=== PATIENT | male | born 1980 | race Caucasian/White ===

== ENCOUNTER 2016-10-18 18:55 | Emergency (ER) | payer OTHER ==
[~2016-10-18] VITALS: Ht 180.3 cm; Wt 100.0 kg
[~2016-10-18 18:55] MED LIST: PANT40TA2 PO; SERT25TA2 PO
[2016-10-18 18:57] VITALS: BP 167/105; PULSE 79; RESP 16; O2SAT 96
--- NOTE | 2016-10-18 19:00 | ED.REPORT ---
HPI-Extremity Problem Lower Date of Service Oct 18, 2016 ED Provider: Alex Guajardo MD Pt is a healthy 36 y/o male presenting to the ED c/o intermittent mild right knee and ankle swelling onset 1 week ago. He denies any overt trauma. A few days ago he was climbing high stairs and felt a shooting pain behind his knee while stepping upwards. 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 Pt denies fever, chills, rash. He has never had a surgery in the knee or history of DVT. Nursing Notes Stated Complaint: RIGHT LEG SWELLING/SENT FROM URGENT CARE Chief Complaint: Extremity Trauma Nursing Notes Reviewed: Yes Allergies: Coded Allergies: Penicillins (Verified Allergy, Unknown, Hives, 10/18/16) Scheduled Pantoprazole DR (Protonix) 40 Mg Tablet 40 MG PO DAILY Sertraline HCl (Zoloft) 25 Mg Tablet 25 MG PO DAILY General Time Seen by MD: 19:00 Chief Complaint Other (RLE swelling) Hx Obtained From: Patient Arrived By: Walk-in Onset Occurred: 1 week ago Symptom Duration: Since onset Location: : Ankle right: Knee right Quality: Painful Severity: Current: Mild Severity: Maximum: Mild Recent Healthcare: No recent doctor visit, No recent hospitalization Similar Sx Previous: No Past Medical History Past Medical History GERD Gastritis Past Surgical History Reports: Appendectomy Family History Grandfather of [place] Smoking History Smoker Current Status UNK Social History Alcohol Use: 1-3 per week Drug Use: Denies drug use Ambulatory Status Independent Review of Systems Constitutional: Denies: Chills, Fever Musculoskeletal: Reports: Extremity pain, Extremity swelling Skin: Denies Rash Neurologic: Denies: Numbness, Weakness Complete sys rev & neg: except as marked. Physical Exam Initial Vital Signs Vital Signs (First) Date Time Temp Pulse Resp B/P Pulse Ox O2 Delivery O2 Flow Rate FiO2 10/18/16 18:57 36.6 79 16 167/105 96 Room Air Initial VS: Reviewed, Vital signs abnormal Head / Eyes: Atraumatic, Normocephalic, PERRL ENT: Mucous membranes moist, Conjunctiva normal, No scleral icterus Neck: Supple, Full range of motion Respiratory: Breath sounds normal, Clear to auscultation, No respiratory distress Cardiovascular: Regular rate & rhythm, Heart sounds normal, Intact distal pulses Abdomen / GI: Soft, No distention Upper Extremities: Vascular intact, Neuro intact, No swelling Skin: Warm, Dry, No cyanosis Neurologic: Alert, Oriented, Nonfocal Psychiatric: Mood/affect normal, Behavior normal, Normal thought content Lower Extremity / Pelvis / MS: No deformity, Neurologic intact, Vascular intact Very mild swelling of the right medial ankle. Right knee: no redness, warmth, calf swelling or tenderness, effusion. Ankle / Foot: No deformity, Neurologic intact, Vascular intact General/Constitutional: Awake, Alert, No acute distress, Cooperative, Not toxic appearing Interpretation & Diagnostics US Focused Lower Ext Venous Negative for DVT Exam Performed by: Allied health pract Exam Interpreted by: Allied health pract Re-Eval/Medical Decision Med Decision/Clinical Course Pt is a healthy 36 y/o male presenting to the ED c/o intermittent mild right knee and ankle swelling onset 1 week ago. He denies any overt trauma. A few days ago he was climbing high stairs and felt a shooting pain behind his knee while stepping upwards. 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 Pt denies fever, chills, rash. He has never had a surgery in the knee or history of DVT. Here in the emergency department the patient is afebrile, hemodynamically stable in no apparent distress. He is neurovascularly intact in the affected extremity. No significant swelling is present. Ultrasound demonstrates no DVT. There is no evidence of abscess, cellulitis or septic arthritis. No evidence of fracture or trauma. I feel that the patient is appropriate for discharge. Prior to discharge follow-up and return precautions were reviewed in detail with the patient who verbalized understanding and agreement with the plan. The patient was discharged in stable condition. Re-Evaluation/Progress : Time of Eval: 19:46 Re-Evaluation/Progress Note: F/U instructions and RTER warnings given. All questions addressed. Counseled Regarding: Diagnosis, Need for follow-up, When/why to return to ED Discharge & Departure Impression: Primary Impression: Right leg swelling Disposition: Home Discharge Condition All VS Reviewed: Yes Condition: Stable Additional Instructions: Thank you for seeking care at the emergency room. Our primary goal today in the ED was to evaluate you for any life-threatening conditions. Your evaluation was reassuring. There is no blood clot. There is no sign of infection. Take Ibuprofen 600 mg every 6 hours as needed for discomfort. Elevate your leg while lying or sitting if you experience swelling. You can also use ice packs. You should follow-up with your primary doctor in the next week. You should return to the ED immediately if you develop fever, rash, numbness or weakness of your leg, or any other concerning signs or symptoms. Thank you for letting us partake in your care today. Referrals: Cheyenne Pacheco (Bev) Tisha (PCP) Elias Attestation Portions of this note were transcribed by Ronaldo Barrera. I, Dr. Guajardo personally performed the history, physical exam and medical decision-making; I reviewed and confirmed the accuracy of the information in the transcribed note. Signed by Elias Cheng, 10/18/16 - 1999 copies to: Cheyenne Pacheco ([facility]ev) Alex Lim MD Oct 18, 2016 19:00 RONALDO BARRERA Oct 18, 2016 19:45
--- NOTE | 2016-10-18 20:17 | DRSVH ---
PROCEDURE: US VEINOUS LEG DUPLEX UNILATERAL, RIGHT INDICATIONS: swelling, rule out DVT TECHNIQUE: Real-time imaging, as well as color and pulse Doppler interrogation, were performed of the lower extr emity deep veins from the inguinal ligament to the popliteal fossa. COMPARISON: None. FINDINGS: The deep veins are normally compressible, and free of intraluminal thrombus. Color and pu lse Doppler demonstrate normal phasic intraluminal flow. There is normal augmentation response to di stal compression maneuver. IMPRESSION: No evidence of deep venous thrombosis. Dictated by: Ted Jackson M.D. on 10/18/2016 at 20:11 Approved by: Ted Jackson M.D. on 10/18/2016 at 20:14
== END 2016-10-18 20:00 | disposition home or self-care (01) ==
LOC: SED 18:55
DX: M79.89 Other specified soft tissue disorders (principal); K21.9 Gastro-esophageal reflux disease without esophagitis; Z88.0 Allergy status to penicillin
CPT/HCPCS: 93971; 99284; G0463